=== PATIENT | female | born 1940 | race Caucasian/White ===

== ENCOUNTER → 2020-04-09 | Outpatient (CLI) | payer MEDICARE ==
[2020-04-09 12:47] LABS: Source, Urine Clean Catch
[2020-04-09 13:50] LABS: Hematocrit 38.9 % (33.0-51.0); Hemoglobin 11.6 g/dL (11.5-16.0); Mean Corpuscular HGB 25.4 pg (26.0-34.0); Mean Corpuscular HGB Conc 29.8 g/dL (31.5-36.5); Mean Corpuscular Volume 85 fL (80-100); Mean Platelet Volume 9.9 fL (9.1-12.4); Platelet Count 213 K/mm3 (150-400); RDW Coefficient Variation 15.4 % (11.7-14.2); RDW Standard Deviation 47.9 fL (35.1-46.3); Red Blood Cell Count 4.57 M/mm3 (3.80-5.20); White Blood Cell Count 5.66 K/mm3 (4.00-11.30)
[2020-04-09 14:15] LABS: Appearance, Urine Hazy (Clear); Bilirubin, Urine Neg (Neg); Blood, Urine 3+ (Neg); Color, Urine Yellow (P-Yellow); Glucose Qualitative, Urine Neg (Neg); Ketones, Urine Neg (Neg); Leukocyte Esterase, Urine 2+ (Neg); Nitrite, Urine Neg (Neg); Protein, Urine 2+ (Neg); Specific Gravity, Urine 1.015 (1.003-1.022); Urobilinogen, Urine NORM (Normal)
[2020-04-09 14:34] LABS: Bacteria Few /hpf; Squamous Epithelial Cells Few /hpf (Few); White Blood Cells, Urine TNTC /hpf (0-5)
[2020-04-09 14:57] LABS: Alanine Aminotransfer (ALT/SGP 23 U/L (12-78); Albumin, Blood 3.5 g/dL (3.4-5.0); Albumin/Globulin Ratio 0.9 (0.8-1.8); Alk Phos 130 U/L (50-136); Anion Gap 9 mmol/L (6-16); Aspartate Aminotrans (AST/SGOT 28 U/L (12-37); Bilirubin, Total 0.4 mg/dL (0.1-1.0); Blood Urea Nitrogen 19 mg/dL (8-24); Bun/Creatinine Ratio 26.7 (12.0-20.0); CHOL/HDL RATIO 3.4; CO2, Blood 24 mmol/L (21-32); Chloride, Blood 107 mmol/L (98-108); Cholesterol 165 mg/dL (50-200); Creatinine, Blood 0.71 mg/dL (0.40-1.00); Globulin, Blood 3.7 g/dL (2.2-4.0); Glomerular Filtration Rate >60 (60-); Glucose, Blood 92 mg/dL (70-99); HDL Cholesterol 49 mg/dL (>39); LDL Direct Measurement 102 mg/dL (0-130); LDL/HDL RATIO 1.8; Low Density Lipoprotein Chol 86 mg/dL (0-110); Potassium, Blood 3.9 mmol/L (3.5-5.5); Sodium, Blood 140 mmol/L (136-145); Total Protein, Blood 7.2 g/dL (6.4-8.2); Triglycerides 151 mg/dL (30-160); Very Low Density Lipoprot Chol 30 mg/dL (6-32)
[2020-04-09 15:14] LABS: Creatinine, Urine Random 88.2 mg/dL (27.00-270.00); Microalb/Creat Ratio UR, Rand 134.921 mg/g (0.000-30.000)
== END | disposition home or self-care (01) ==
LOC: LAB SHORT 12:43 → OLS 12:43 → LAB FUT 04-03 14:40
PROVIDERS: Internal Medicine
DX: E78.2 Mixed hyperlipidemia (principal); E03.8 Other specified hypothyroidism; R73.02 Impaired glucose tolerance (oral); R53.81 Other malaise
CPT/HCPCS: 36415; 80053; 80061; 81001; 82043; 82570; 83036; 83721; 83880; 84443; 85027; 86141; 87086

== ENCOUNTER → 2020-05-10 | Outpatient (CLI) | payer MEDICARE | LOC: PLD 08:20 → LAB SHORT 08:20 | DX: L85.9 Epidermal thickening, unspecified (principal); L83 Acanthosis nigricans | CPT/HCPCS: 88305; 88312 ==

== ENCOUNTER → 2020-06-06 | Outpatient (CLI) | payer MEDICARE ==
[2020-06-06 14:42] LABS: Source, Urine Clean Catch
[2020-06-06 16:04] LABS: Appearance, Urine Clear (Clear); Bilirubin, Urine Neg (Neg); Blood, Urine 3+ (Neg); Color, Urine Yellow (P-Yellow); Glucose Qualitative, Urine Neg (Neg); Ketones, Urine Neg (Neg); Leukocyte Esterase, Urine 2+ (Neg); Nitrite, Urine Neg (Neg); Protein, Urine Neg (Neg); Specific Gravity, Urine 1.015 (1.003-1.022); Urobilinogen, Urine NORM (Normal)
[2020-06-06 16:10] LABS: White Blood Cells, Urine 25-50 /hpf (0-5)
[2020-06-06 16:11] LABS: Bacteria Mod /hpf; Squamous Epithelial Cells Few /hpf (Few)
== END | disposition home or self-care (01) ==
LOC: LAB SHORT 14:40 → PLD 14:40 → LAB FUT 05-30 12:40
PROVIDERS: Internal Medicine
DX: N30.20 Other chronic cystitis without hematuria (principal)
CPT/HCPCS: 81001; 87077; 87086; 87186

== ENCOUNTER → 2021-03-11 | Outpatient (CLI) | payer MEDICARE | END | disposition home or self-care (01) | LOC: LAB SHORT 12:55 → LAB 12:55 | DX: N39.0 Urinary tract infection, site not specified (principal) | CPT/HCPCS: 87077; 87086; 87186 ==

== ENCOUNTER 2025-02-10 14:34 | Inpatient (IN) | payer MEDICARE ==
[~2025-02-10] VITALS: Ht 160 cm; Wt 96.1 kg
[~2025-02-10 14:34] MED LIST changes: -ACET500 PO; -ALBU90OI INH; -ASPI81CH PO; -CHLO25B PO; -CLOBETASOL EMOL15 G1 TOP; -FARXIGA10 MG PO; -IBUP200 PO; -Isosorbide Mono30 MG PO
[2025-02-10] MEDS ORDERED: CefTRIAXone Sodium 1,000 MG in NS 100 ML IV ONE (17:25)
[2025-02-10 17:36] LABS: Source, Urine Clean Catch
[2025-02-10 17:43] LABS: Bilirubin, Urine Neg (Neg); Glucose Qualitative, Urine Neg (Neg); Ketones, Urine Neg (Neg); Leukocyte Esterase, Urine 3+ (Neg); Protein, Urine 1+ (Neg); Specific Gravity, Urine 1.015 (1.003-1.022); Urobilinogen, Urine NORM (Normal)
[2025-02-10 17:53] LABS: Color, Urine Pale Yellow (P-Yellow)
[2025-02-10 17:54] LABS: White Blood Cells, Urine 50-100 /hpf (0-5)
[2025-02-10] MEDS ORDERED: Ondansetron HCl 2 MG / ML 2ML Vial IV PRN (18:00)
[2025-02-10] MEDS ORDERED: FentaNYL Citrate 50 MCG/ML 2 ML Injection IV PRN (18:00)
[2025-02-10] MEDS ORDERED: NS 1,000 ML IV SCH (18:00)
[2025-02-10] MEDS ORDERED: FLU VACC TS2025(65UP)/MF59C/PF 45 MCG/0.5 ML SYRINGE IM SCH (18:05)
[2025-02-10] MEDS ORDERED: CefTRIAXone Sodium 1,000 MG in NS 100 ML IV SCH (18:30)
[2025-02-10 18:53] LABS: Influenza A, PCR NEGATIVE (NEGATIVE); Influenza B, PCR NEGATIVE (NEGATIVE); Resp Syncytial Virus, PCR NEGATIVE (NEGATIVE); SARS-Cov-2 (COVID-19) PCR, MMC NEGATIVE (NEGATIVE)
[2025-02-10 20:07] VITALS: BP 130/79
[2025-02-10] MEDS ORDERED: ACET500 PO (20:38)
[2025-02-10] MEDS ORDERED: ALBU90OI INH (20:39)
[2025-02-10] MEDS ORDERED: CHLO25B PO (20:40)
[2025-02-10] MEDS ORDERED: CLOBETASOL EMOL15 G1 TOP (20:41)
[2025-02-10] MEDS ORDERED: FARXIGA10 MG PO (20:41)
[2025-02-10] MEDS ORDERED: IBUP200 PO (20:42)
[2025-02-10] MEDS ORDERED: Isosorbide Mono30 MG PO (20:42)
[2025-02-10] MEDS ORDERED: ASPI81CH PO (20:51)
[2025-02-10] MEDS ORDERED: Acetaminophen 500MG/DP-Hydram 25MG HCL 1 Tab PO ONE (21:25)
[2025-02-10] MEDS ORDERED: Clobetasol Prop 0.05% Cream 15 gm TOP PRN (23:05)
[2025-02-10] MEDS ORDERED: Albuterol HFA200 ACT/6.7 GM INH INH PRN (23:20)
[2025-02-10] MEDS ORDERED: Miconazole Nitrate 2% 85 GM PWD TOP PRN (23:25)
[2025-02-11] VITALS (7 sets, daily range): BP systolic 109–134; BP diastolic 68–85
[2025-02-11 02:18] LABS: Alanine Aminotransfer (ALT/SGP 17.0 U/L (12-78); Albumin, Blood 2.9 g/dL (3.4-5.0); Albumin/Globulin Ratio 1.0 (0.8-1.8); Anion Gap 7.0 mmol/L (3-11); Aspartate Aminotrans (AST/SGOT 19.0 U/L (12-37); Bilirubin, Total 0.6 mg/dL (0.1-1.0); Blood Urea Nitrogen 12.0 mg/dL (8-24); CO2, Blood 26.0 mmol/L (21-32); Calcium, Blood 8.5 mg/dL (8.5-10.1); Chloride, Blood 111.0 mmol/L (98-108); Creatinine, Blood 0.69 mg/dL (0.40-1.00); Globulin, Blood 3.0 g/dL (2.2-4.0); Glucose, Blood 107.0 mg/dL (70-99); Potassium, Blood 3.7 mmol/L (3.5-5.5); Sodium, Blood 140.0 mmol/L (136-145); Total Protein, Blood 5.9 g/dL (6.4-8.2)
[2025-02-11 02:25] LABS: BASOPHILS ABSOLUTE AUTO 0.03 K/mm3 (0.00-0.23); BASOPHILS PERCENT AUTO 1 % (0-2); EOSINOPHILS ABSOLUTE AUTO 0.06 K/mm3 (0.00-0.68); EOSINOPHILS PERCENT AUTO 1 % (0-6); Hematocrit 34.6 % (33.0-51.0); Hemoglobin 11.0 g/dL (11.5-16.0); IMMATURE GRAN ABSOLUTE AUTO 0.01 K/mm3 (0.00-0.10); IMMATURE GRAN PERCENT AUTO 0 % (0-1); LYMPHOCYTES ABSOLUTE AUTO 2.04 K/mm3 (0.84-5.20); LYMPHOCYTES PERCENT AUTO 34 % (21-46); MONOCYTES ABSOLUTE AUTO 0.66 K/mm3 (0.16-1.47); MONOCYTES PERCENT AUTO 11 % (4-13); Mean Corpuscular HGB Conc 31.8 g/dL (31.5-36.5); Mean Corpuscular Volume 92 fL (80-100); NEUTROPHILS ABSOLUTE AUTO 3.26 K/mm3 (1.96-9.15); NEUTROPHILS PERCENT AUTO 54 % (41-73); NRBC ABSOLUTE 0.00 K/mm3 (0.00-0.02); NRBC Auto 0.0 /100 WBC (0.0-0.2); Platelet Count 168 K/mm3 (150-400); RDW Coefficient Variation 14.7 % (11.7-14.2); RDW Standard Deviation 50.0 fL (35.1-46.3)
--- NOTE | 2025-02-11 03:41 | NUR ---
SHIFT SUMMARY: PATIENT ARRIVED FROM ER YESTERDAY 02/10/25 AROUND 1999. PATIENT IS A&OX4. SOFTWARE QA MANAGER REPORTS PATIENTS RHYTHM TO BE SINUS TACH WITH BBB AND HR BETWEEN 120'S-130'S BPM. PATIENT REPORTS FEELING PALPATATIONS AND HAS HAD CONSISTENT 4-5/10 SUBSTERNAL CHEST PAIN SCORE THROUGHOUT SHIFT. PATIENT WAS GIVEN ONE TIME ORDER OF 1 TABLET PO TYLENOL PM PER JUN TO HELP WITH CHEST PAIN MANAGEMENT AND FOR SLEEP SINCE SHE TAKES IT AT HOME. PATIENT STATES "IT'S WORSE IF I TAKE A DEEP BREATH OR IF I MOVE TOO MUCH." DR. REED AWARE, X1 DOSE OF IV NS @ 100ML/HR AND HOME MEDICATIONS ORDERED, BUT OTHERWISE NO ADDITIONAL NEW ORDERS AT THIS TIME. THIS NURSE REQUESTED FOR CARDIOLOGY CONSULT, BUT NO ORDER WAS PLACED AT THIS TIME. PATIENT IS ON 2L NC WITH >90% SPO2 AND DID NOT WEAR HER HOME BIPAP AND REFUSED THE HOSPITALS TONIGHT, BUT FAMILY SAID THEY WOULD BRING HOME BIPAP IN TODAY. OTHER VITALS ARE STABLE AT THIS TIME. NPO DIET- BUT ICE CHIPS ARE OKAY, AND HAS Q6H CBG CHECKS ORDERED WHILE NPO. PATIENT IS LAYING IN BED WITH CALL LIGHT IN REACH AND BED ALARM ON A PRECAUTION SINCE DURING THE NIGHT PATIENT WOULD FORGET TO CALL FOR HELP TO USE BSC. PATIENT WAS EDUCATED ON PUREWICK FUNCTION AND COULD HELP HER SLEEP FOR LONGER PERIODS OF TIME, HOWEVER, PATIENT REFUSED FOR THE PUREWICK AND ONLY WANTS TO USE BSC. CHEST PAIN WITH EACH USE OF BSC STAYED THE SAME WITH NO INCREASE IN HR OR PAIN SCORING.
--- NOTE | 2025-02-11 08:49 | NUR ---
PALLIATIVE CARE NOTE: CONSULT RECEIVED FOR ADVANCED CARE PLANNING AND SYMPTOM MANAGEMENT. REVIEWED MEDICAL RECORD. NO POLST OR AD FOUND ON FILE OR THROUGH [facility]. PT IS FULL CODE. PLAN TO RULE OUT PE DUE TO CP, ELEVATED TROPONINS.
[2025-02-11] MEDS ORDERED: Isosorbide Mononitrate 30 MG TABCR PO SCH (09:00)
[2025-02-11] MEDS ORDERED: Enoxaparin 40 MG/0.4 ML SYR SC SCH (09:00)
[2025-02-11] MEDS ORDERED: Diltiazem HCl 5 MG / ML 5ML Vial IV ONE (11:20)
[2025-02-11] MEDS ORDERED: Amiodarone HCl 450 MG in NS 250 ML IV SCH (12:45)
--- NOTE | 2025-02-11 12:45 | NUR ---
1244 - SPOKE WITH DR. LEON VIA PHONE AND MD REQUESTING AMIO GTT STARTED FOR PATIENT. CONFIRM MEDS GIVEN VIA EMAR OF THIS MORNING FOR RATE CONTROL WITH PROVIDER. ORDER PLACED, AWAITING PHARMACY VERIFICATION AND DELIVERY. UPDATED MAGALY MORENO RN
--- NOTE | 2025-02-11 13:28 | NUR ---
PALLIATIVE CARE VISIT: MET WITH PT AT 1030 THIS MORNING. PT IS AWAKE, A/O X 4 AND AGREEABLE TO VISIT. CODE STATUS DISCUSSED. PT EDUCATED ON CPR VS DNR MEASURES. PT WISHES TO REMAIN A FULL CODE. SHE STATES SHE WOULD BE OKAY WITH CPR AND INTUBATION IF NECESSARY BUT WOULD NOT WANT PROLONGED STAY ON BREATHING MACHINE. AD: PT STATES SHE HAS COMPLETED AN ADVANCE DIRECTIVE. IT IS AT HOME IN HER SAFE. PT STATES SHE HAS NOT GIVEN A COPY TO HER HEALTHCARE REP WHICH IS HER SON. ENCOURAGED PT TO GIVE A COPY TO HER SON AND ALSO BRING COPY TO HOSPITAL TO BE UPLOADED TO HER MEDICAL RECORD. PT STATES SHE WOULD DO THIS. SYMPTOMS: PT STATES SHE HAS NO NAUSEA, CONSTIPATION, ANXIETY, DECREASED APPETITE. SHE DOES HAVE HER NORMAL ARTHRITIS PAIN AND IT IS MANAGED WITH TYLENOL IN AM AND BEFORE BED. PT STATES SHE STILL GETS SOB WITH ACTIVITY BUT RECOVERS QUICKLY. PT IS ON 2 LPM VIA NC AT THIS TIME. PT DENIES ANY FURTHER QUESTIONS OR CONCERNS. SHE IS AWAITING TEST RESULTS FROM HOSPITALIST.
--- NOTE | 2025-02-11 13:40 | NUR ---
UPDATE MD LEON CONSULTED. MD LEON W/ ORDERS FOR AMIO GTT. STARTED NOW. WILL GO TO HALF RATE AT 1940.
--- NOTE | 2025-02-11 18:02 | NUR ---
SHIFT SUMMARY PT A&O, ABLE TO MAKE NEEDS KNOWN. SP02>90% ON 1L NC FOR COMFORT. SATS OK W/O BUT PT STATES FEELS SOB W/O. FAMILY BROUGHT IN HOME CPAP AT BEDSIDE. TELMEETRY SHOWS AFLUTTER 2:1, HR 100'S-130'S. CARDIOLOGY CONSULTED. CARDIOLOGY W/ ORDERS FOR AMIO GTT, SEE PREVIOUS NOTE. UP TO BSC TO VOID/HAVE BM. C/O OF CP, MEDICATED W/ TYLENOL PER EMAR. AWARE. UPGRADED TO CARDIAC DIET. REFUSED BED BATH. MULTIPLE FAMILY IN ROOM THIS SHIFT. CURRENTLY ON COMMODE, CALL LIGHT IN REACH.
[2025-02-12] VITALS (7 sets, daily range): BP systolic 126–153; BP diastolic 78–104
[2025-02-12 04:12] LABS: Alanine Aminotransfer (ALT/SGP 14.0 U/L (12-78); Albumin, Blood 2.7 g/dL (3.4-5.0); Albumin/Globulin Ratio 0.8 (0.8-1.8); Anion Gap 7.0 mmol/L (3-11); Aspartate Aminotrans (AST/SGOT 13.0 U/L (12-37); Bilirubin, Total 0.3 mg/dL (0.1-1.0); Blood Urea Nitrogen 14.0 mg/dL (8-24); CO2, Blood 25.0 mmol/L (21-32); Calcium, Blood 8.8 mg/dL (8.5-10.1); Chloride, Blood 109.0 mmol/L (98-108); Creatinine, Blood 0.84 mg/dL (0.40-1.00); Globulin, Blood 3.2 g/dL (2.2-4.0); Glucose, Blood 107.0 mg/dL (70-99); Magnesium, Blood 2.2 mg/dL (1.6-2.4); Potassium, Blood 4.0 mmol/L (3.5-5.5); Sodium, Blood 137.0 mmol/L (136-145); Total Protein, Blood 5.9 g/dL (6.4-8.2)
--- NOTE | 2025-02-12 05:18 | NUR ---
SHIFT SUMMARY: NO SIGNIFICANT CHANGES DURING TONIGHTS NIGHTSHIFT. PATIENT IS A&OX4, BUT BED ALARM WAS SET DUE TO PATIENT FORGETTING TO CALL INTERMITTENTLY DURING THE NIGHT TO USE BSC. PATIENT EACH TIME WAS RE-EDUCATED ON USING THE CALL LIGHT BEFORE GETTING UP. PATIENT WOULD THEN VERBALIZE UNDERSTANDING OF EDUCATION EACH TIME. PER LEAD PHARMACY TECHNICIAN AISHWARYA PATIENTS RHYTHM CONTINUES TO BE AFLUTTER WITH BBB WITH HR SUSTAINING IN THE 120'S BPM. PATIENT REPORTED 2/10 SUBSTERNAL DULL ACHING CHEST PAIN, BUT DENIED PRN PAIN MEDICATIONS THROUGHOUT SHIFT. AMIO GTT WAS RUNNING AT 33.3 ML/HR FOR THE BEGINNING OF THE SHIFT SINCE IT WAS WITHIN THE 6 HOURS PER PHARMACY ORDERS. AMIO GTT RATE WAS CHANGED AT 1944 TO 16.7 ML/HR FOR THE MAINTENANCE RATE PER PHARMACY ORDERS. PATIENT HAS BEEN UP FREQUENTLY TO USE THE BSC TO VOID AND PASS GAS. PATIENT WAS CONCERNED ABOUT NOT HAVING A BM RECENTLY, NOTIFIED AND PLACED ORDERS FOR STOOL SOFTENERS TO BE GIVEN LATER THIS MORNING. PATIENT IS CURRENTLY LAYING IN BED WITH CALL LIGHT IN REACH. BED ALARM ON A PRECAUTION.
--- NOTE | 2025-02-12 10:02 | NUR ---
UPDATE MD LEON W/ ORDERS TO DC CARDIZEM PO. START METOPROLOL SUCCINATE 50 MG BID STARTING TODAY AT 2100. CONTINUE AMIO GTT AND START PO AMIO TOMORROW.
--- NOTE | 2025-02-12 13:48 | NUR ---
UPDATE PT A&OX4. SP02>90% ON 1-2L NC, CPAP AT NOC. SOB W/ EXERTION. TELEMETRY SHOWS AFLUTTLER AVG 120'S. BP STABLE. AMIO GTT INFUSING PER EMAR. C/O 2/10 STERNAL PRESSURE, DESCRIBES ACHE. MD LEON IN ROOM. MD LEON W/ ORDERS FOR METOPROLOL 2100 TO BE GIVEN NOW. REASSES THIS EVENING AND POSSIBLY DIG LOAD TONIGHT. NPO FOR POSSIBLE JESSIKA/CARDIOVERSON IN AM. PT AGREED AND VERBALIZED UNDERSTANDING. PT ENERGETIC THIS AM, ASKED TO SHOWER. PT ABLE TO SIT IN SHOWER CHAIR AND BATH WITH ASSISTANCE, MINIMAL SOB. PT EXPRESSED FEELING GREAT. DAUGHTER IN ROOM AFTER SHOWER. POWERGLIDE PLACED. SHORTLY AFTER, SEVERAL FAMILY MEMEBERS IN ROOM. PT BEGAN TO APPEAR TIRED, SOB, STATES SHE FEELS WEAK. FAMILY ASKED TO LEAVE TO LET PATIENT REST. PT UP MULTIPLE TIMES THIS SHIFT TO COMMODE TO VOID AND HAVE ONE LARGE BM. CALL LIGHT IN REACH.
--- NOTE | 2025-02-12 17:13 | NUR ---
UPDATE PT HR REMAINS IN 120'S. MD LEON NOTIFIED. MD LEON W/ ORDERS FOR DIGOXIN IV 250 MCG NOW AND THEN 250 MCG IN 6 HOURS.
--- NOTE | 2025-02-12 17:50 | NUR ---
SHIFT SUMMARY PT A&OX4, MAKES NEEDS KNOWN. SP02>90% ON 1-2L NC. EXPIRATORY WHEEZING AUDIBLE AT DINNER THIS EVENING. SOB W/ EXERTION. WORE CPAP FOR NAP. TELEMETRY CONTINUES TO SHOW A FLUTTER, HR 120'S. JUST DIG LOADED PER EMAR. ECHO THIS SHIFT, AWAITING RESULTS. DENIES PAIN. UP TO BSC TO VOID AND HAVE BM. UP TO SHOWER THIS SHIFT. AMIO GTT FINISHED THIS SHIFT. NPO AT MIDNIGHT FOR POSSIBLE JESSIKA/CARDIOVERSION. CURRENTLY IN ROOM EATING DINNER AND TALKING TO FAMILY. CALL LIGHT IN REACH.
[2025-02-13] VITALS (10 sets, daily range): BP systolic 133–162; BP diastolic 85–108
[2025-02-13 05:09] LABS: Anion Gap 10.0 mmol/L (3-11); Blood Urea Nitrogen 13.0 mg/dL (8-24); CO2, Blood 23.0 mmol/L (21-32); Calcium, Blood 8.8 mg/dL (8.5-10.1); Chloride, Blood 110.0 mmol/L (98-108); Creatinine, Blood 0.75 mg/dL (0.40-1.00); Glucose, Blood 107.0 mg/dL (70-99); Potassium, Blood 4.2 mmol/L (3.5-5.5); Sodium, Blood 139.0 mmol/L (136-145)
--- NOTE | 2025-02-13 05:44 | NUR ---
SHIFT SUMMARY Pt had 2 IVs in ANDREW that infiltrated, pt reported high pain even after removal, ice applied and limb elevated. CPAP at NOC w/ 2L bleed. Does desat to mid 80s when off O2. HRs labile - 80 to 120s. Remained in fib/flutter. Up to commode with 1assist. Bed alarm on d/t impulsivity, forgetfulness NPO for a JESSIKA with possible cardioversion today.
--- NOTE | 2025-02-13 12:11 | NUR ---
MORNING SUMMARY ASSUMPTION OF CARE AROUND 0710 THIS MORNING, REPORT RECIEVED FROM YUMI THAKUR. THE PT IS A&OX4, 1P ASSIST TO BSC W/ FWW, AND THE PT MAKES HER NEEDS KNOWN. ON TELE SHE HAS BEEN AFLUTTER 120'S, DESPITE THE INCREASE IN METOPROLOL SUCCINATE AND IV DIGOXIN. BP A LITTLE HYPERTENSIVE THIS AFTERNOON. DISCUSSED WITH DR. MALDONADO. THE PT IS W/O ANGINA/PALPITATIONS/PRESSURE, BUT SHE IS SOB AND IT WORSENS WITH EXCERTION. DR. LEON SAW THE PT AND IS PLANNING ON DOING A JESSIKA 02/14 IN ICU. THE PT WILL TRANSFER TO ICU AT SOME POINT TODAY. ICU AND PCU WINDOWS PHONE DEVELOPER'S AWARE. DR. LEON DISCUSSED RISKS WITH THE FAMILY AND PT. ALL QUESTIONS WERE ANSWERED AND THE PT IS AGREEABLE TO CONTINUE WITH THE JESSIKA DESPITE THE RISK OF INTUBATION. THE PT STARTED THE SHIFT ON 3L NC. SHE HAS SINCE BEEN TITRAITED TO 1L NC. SP02 >95%. THE PT REPORTS CHRONIC HISTORY OF URINARY URGENCY. MEDICATIONS PER EMAR. NO BOWEL MOVEMENT THIS MORNING, BUT THE PT DID REPORT HAVING MULTIPLE YESTERDAY. NO ACUTE EVENTS THIS SHIFT. SEE NOTES FOR UPDATES.
--- NOTE | 2025-02-13 16:40 | NUR ---
INCREASED SOB THIS EARLY AFTERNOON THE PT WAS DRINKING A MILKSHAKE THAT TRIGGERED A COUGHING FIT. THE PT BECAME VERY SOB, TACHYPEANIC, AND WAS HAVING LABORED BREATHING. SHE WAS UNABLE TO SPEAK WITH OUT HAVING TO TAKE A BREATH. WHEEZES AND TIGHTNESS NOTED T/O LUNGS. SP02 >95% ON 1LNC. THE PT WAS INCREASED TO 2L NC DURING THIS EPISODE. RT CALLED AND A BREATHING TREATMENT WAS PROVIDED TO THE PT. POST BREATHING TREATMENT, THE PT'S TACHYPEANIA RESOLVED AND SHE WAS NOT STRUGGLING TO BREATH OR TALK. FAMILY WAS AT BEDSIDE AND UPDATED ON EVENTS THAT WERE TAKING PLACE. ALSO, THIS RN REMINDED FAMILY THAT THE PT WILL BE TRANSFERING TO ICU TODAY AT SOME POINT FOR TOMORROW'S PROCEDURE. THE PT'S DAUGHTER ELIAS WANTS TO BE THE PERSON NOTIFIED WHEN SHE TRANSFERS TO ICU. SEE NOTES FOR ANY UPDATES.
--- NOTE | 2025-02-13 16:52 | NUR ---
"Spiritual Care | Pt. Request Pt. is awake in bed and welcomes my visit with a handshake. Pt. is pleasant. Pt. identifies herself as woman of cristhian and a lengthy life review based on cristhian and belief is facilitated. Pt. verbalized how important her family relationships were and that she just lost her second in April. Pastoral bereavement care is provided, yet the Pt. maintained a spirit of gratitude. Prayed with the Pt. Pt. verbalized gratitude for the spiritual care visit."
[2025-02-13] MEDS ORDERED: Lactobacil 2-S.Thermo-Bifido 1 1 Cap PO SCH (21:00)
[2025-02-14] VITALS (19 sets, daily range): BP systolic 72–160; BP diastolic 48–94
--- NOTE | 2025-02-14 02:11 | NUR ---
SHIFT SUMMARY Remains in Aflutter, rates 80s while resting, 120s during activity. mild HTN. 2L NC vs CPAP at NOC. New dry/hacky cough, intermittent upper airway wheezing and some crackles in RUL. Impulsive so bed alarm active. SBA to commode. Bruising to upper arms from multiple IV infiltrations. urinary urgency/frequency. plan for JESSIKA and cardioversion in ICU later this AM
--- NOTE | 2025-02-14 04:17 | NUR ---
Report called to [facility] and Pt transported to ICU bed 9.
--- NOTE | 2025-02-14 05:30 | NUR ---
TRANSFER TO ICU 9 FOR JESSIKA PROCEDURE TODAY, PT ARRIVED AT 0400. SHIFT SUMM: PT NOW HAS 2 PATENT PIV IN RFA AND RAC.PT IS ABLE TO AMBULATE TO [facility] SBA. SBP'S HAVE BEEN IN 140'S AD HR IN 90-120'S. SPO2 >96% ON 2L NC. PT IS A&OX4 AND ABLE TO MAKE NEEDS KNOWN. PT BECAME NPO AT MIDNIGHT FOR JESSIKA PROCEDURE TODAY. PT IS CURRENTLY RELAXING AND HAS BED ALARM SET FOR SAFETY.
--- NOTE | 2025-02-14 07:00 | NUR ---
ASSUMED CARE OF PATIENT SHE IS ALERT AND ORIENTED X 4. SHE CAN ARIAS BUT WEAK AND SHORT OF BREATH WITH ACTIVITY. PATIENT BEING VISITED BY FAMILY ALL 6 AT BEDSIDE AT TIME OF SHIFT CHANGE. PLAN TO DO JESSIKA AND CARDIOVERSION TODAY FOR AFLUTTER RHYTHM RATE IN 120'S. PATIENT IS TACHYPNIC WHILE TALKING. AFEBRILE AT THIS TIME. PT HAS TWO PIV'S TO RIGHT FA AND RIGHT LOWER FA.
[2025-02-14] MEDS ORDERED: Benzocaine Oral Spray 0.5ML UD ONE (07:38)
[2025-02-14] MEDS ORDERED: NS 500 ML IV ONE (08:05)
--- NOTE | 2025-02-14 08:12 | NUR ---
Procedur start 0808. anethesia at bedside giving meds. DR LEON AT BEDSIDE DID ONE SHOCK AT 50J SYNCE ON. SEE ANETHESIA NOTES END 822.. PATIENT IN SINUS RHYTHM RATE 65. BP 122/57 MAP 76 SAO2 99% ON BUBBLE MASK OF 10L OXYEGEN. RR 28 ENTITLE 38. ORAL AIRWAY IN PLACE WHEN ANETHESIA LEFT ROOM.
[2025-02-14] MEDS ORDERED: NS 1,000 ML BAG IR SCH (08:40)
[2025-02-14] MEDS ORDERED: NS 1,000 ML IV ONE (08:45)
[2025-02-14] MEDS ORDERED: FentaNYL Citrate 50 MCG/ML 2 ML Injection ONE (09:13)
[2025-02-14] MEDS ORDERED: Lidocaine HCl 4% 5 ML SDA ONE (09:13)
[2025-02-14] MEDS ORDERED: Midazolam HCl 1MG / ML 2ML Vial ONE (09:13)
--- NOTE | 2025-02-14 12:08 | NUR ---
UPDATE PATIENT POST CARDIOVERSION THAT HAPPENED AT 0810. PT IS SINUS RHYTHM TO SINUS LOIDA RATE 57-65. PT ABLE TO BE OUT OF BED TO BATHROOM WITH ONE PERSON SBA WITHOUT TACHYPNEA OR SOB. PT BP 120/60'S AND OXYGEN AT 2L NC FOR SPO2 AT 99%. WHEN NC OFF AND TALK SHE DROPS TO 87%. PT ABLE TO EAT HER FOOD WHILE IN CHAIR FOR LUNCH. SHE RECEIVED BATH WITH WIPES AND NEW GOWN WHILE OUT OF BED. PT BRUSHED HER OWN HAIR. PT NOT COMPLAINING OF ANY PAIN AT THIS TIME.
[2025-02-14] MEDS ORDERED: Midazolam HCl 1MG / ML 2ML Vial IV ONE (13:30)
[2025-02-14] MEDS ORDERED: Propofol 10mg/ml 20 ml Vial (Procedural) IV ONE (13:30)
--- NOTE | 2025-02-14 17:53 | NUR ---
ASSUMED CARE FROM ICU IN AFTERNOON. A/A/OX3, DENIES CP OR SOB. SR 60'S. JESSIKA COMPLETED IN AM AND TOLERATED WELL. VSS. EATS DINNER WITHOUT DIFFICULTY. WILL CONTINUE TO MONITOR AND TREAT UNITL REPORT GIVEN TO DENNIS SHIFT RN.
[2025-02-15] VITALS (7 sets, daily range): BP systolic 95–146; BP diastolic 50–74
[2025-02-15 04:25] LABS: BASOPHILS ABSOLUTE AUTO 0.04 K/mm3 (0.00-0.23); BASOPHILS PERCENT AUTO 1 % (0-2); EOSINOPHILS ABSOLUTE AUTO 0.23 K/mm3 (0.00-0.68); EOSINOPHILS PERCENT AUTO 5 % (0-6); Hematocrit 35.3 % (33.0-51.0); Hemoglobin 11.0 g/dL (11.5-16.0); IMMATURE GRAN ABSOLUTE AUTO 0.02 K/mm3 (0.00-0.10); IMMATURE GRAN PERCENT AUTO 0 % (0-1); LYMPHOCYTES ABSOLUTE AUTO 1.46 K/mm3 (0.84-5.20); LYMPHOCYTES PERCENT AUTO 31 % (21-46); MONOCYTES ABSOLUTE AUTO 0.30 K/mm3 (0.16-1.47); MONOCYTES PERCENT AUTO 6 % (4-13); Mean Corpuscular HGB Conc 31.2 g/dL (31.5-36.5); Mean Corpuscular Volume 95 fL (80-100); NEUTROPHILS ABSOLUTE AUTO 2.69 K/mm3 (1.96-9.15); NEUTROPHILS PERCENT AUTO 57 % (41-73); NRBC ABSOLUTE 0.00 K/mm3 (0.00-0.02); NRBC Auto 0.0 /100 WBC (0.0-0.2); Platelet Count 202 K/mm3 (150-400); RDW Coefficient Variation 14.6 % (11.7-14.2); RDW Standard Deviation 50.7 fL (35.1-46.3)
[2025-02-15 04:49] LABS: Anion Gap 10.0 mmol/L (3-11); Blood Urea Nitrogen 16.0 mg/dL (8-24); CO2, Blood 25.0 mmol/L (21-32); Calcium, Blood 8.8 mg/dL (8.5-10.1); Chloride, Blood 105.0 mmol/L (98-108); Creatinine, Blood 0.81 mg/dL (0.40-1.00); Glucose, Blood 112.0 mg/dL (70-99); Potassium, Blood 4.5 mmol/L (3.5-5.5); Sodium, Blood 135.0 mmol/L (136-145)
--- NOTE | 2025-02-15 05:18 | NUR ---
SHIFT SUMMARY: PT IS A&OX4, PLEASANT AND COOPERATIVE WITH CARE. VSS ON 2L NC DURING DAY AND CPAP AT NIGHT SATS 97-99%. SHE TOLERATED HER CPAP ALL NIGHT. SHE'S NORMALLY RA AT HOME. SB AT 59 WITH 1ST DEGREE AV BLOCK PVC AND BBB. HER HR REMAINED IN THE 40'S THROUGHOUT THE NIGHT WHILE SLEEPING AFTER TAKING HER AMIODORONE. TAKES HER PILLS WHOLE WITH WATER TOLERATING A REGULAR DIET, SBA TO COMMODE. VOIDING YELLOW URINE. REMAINS ON AUGMENTIN FOR UTI. SHE REFUSED HER COLACE AND SENNA. BED IN LOWEST POSITION, CALL LIGHT WITHIN REACH. CALLS APPROPRIATELY AND IS ABLE TO VERBALIZE NEEDS EFFECTIVELY.
--- NOTE | 2025-02-15 07:00 | NUR ---
ASSUMPTION OF CARE: REPORT FROM CAROLINE, FRED RN TO ASSUME CARE OF PT. PT RESING COMFORTABLY IN BED WITH NO COMPLAINTS OR NEEDS AT THIS TIME. CALL LIGHT IN REACH.
--- NOTE | 2025-02-15 11:54 | NUR ---
SHIFT SUMMARY: PT A&OX4. FOLLOWS COMMANDS AND MAKES NEEDS KNOWN TO STAFF. PT WAS ABLE TO WALK TO THE BATHROOM A COUPLE TIMES THIS SHIFT TO SHOWER AND USE THE BATHROOM. DENIES ANY COMPLAINTS WITH ACTIVITY. HR REMAINS LOIDA. BP STABLE. NO SIGNIFICANT EVENTS HAPPENED DURING THIS SHIFT. REPORT TO ILEANA Vaughn TO ASSUME CARE OF PT.
--- NOTE | 2025-02-15 18:58 | NUR ---
EOS: NO ACUTE CHANGES FROM ASSUMTION FROM PREVIOUS RN, NOW ON RA. ABLE TO MAKE NEEDS KNOWN, A/O X 4 ABLE TO MAKE NEEDS KNOWN, ONLY CHANGE CALL TO DR. LEON AT SHIFT CHANGE DUE TO SLEEPING AND NEW HR OF 39 AND JUNCTIONAL, NO CHANGE CONTNINCESAR FELICIANO DONT HOLD. DENIES CHEST PAIN, MILD LAIRD PRN TYLENOL GIVEN. ABLE TO VOID, FREQUENCY AND MILD INCONTINENCE AT TIMES. DENIES BM DENIES BM MEDS, PLAN OF CARE CONTINUES.
[2025-02-16 03:14] VITALS: BP 133/82
[2025-02-16 05:18] LABS: Anion Gap 9.0 mmol/L (3-11); Blood Urea Nitrogen 15.0 mg/dL (8-24); CO2, Blood 27.0 mmol/L (21-32); Calcium, Blood 8.8 mg/dL (8.5-10.1); Chloride, Blood 106.0 mmol/L (98-108); Creatinine, Blood 0.76 mg/dL (0.40-1.00); Glucose, Blood 105.0 mg/dL (70-99); Potassium, Blood 4.3 mmol/L (3.5-5.5); Sodium, Blood 138.0 mmol/L (136-145)
--- NOTE | 2025-02-16 05:43 | NUR ---
SHIFT SUMMARY PATIENT A/O X 4, COOPERATIVE WITH CARE AND USES CALL LIGHT APPROPRIATELY. SINUS LOIDA 40-50s, BRIEFLY DROPS TO 30s WHILE SLEEPING BUT QUICKLY IMPROVES. SATS >90 %, SLEEPING WITH CPAP ON. PATIENT SBA WITH FWW TO BATHROOM, TOLERATES WELL. REPOSITIONS IN BED INDEPENDENTLY. PATIENT SLEPT MOST OF THE SHIFT, NO ACUTE EVENTS. BED LOCKED IN LOWEST POSITION, CALL LIGHT IN REACH.
[2025-02-16 05:55] LABS: BASOPHILS ABSOLUTE AUTO 0.03 K/mm3 (0.00-0.23); BASOPHILS PERCENT AUTO 1 % (0-2); EOSINOPHILS ABSOLUTE AUTO 0.16 K/mm3 (0.00-0.68); EOSINOPHILS PERCENT AUTO 4 % (0-6); Hematocrit 33.1 % (33.0-51.0); Hemoglobin 10.3 g/dL (11.5-16.0); IMMATURE GRAN ABSOLUTE AUTO 0.01 K/mm3 (0.00-0.10); IMMATURE GRAN PERCENT AUTO 0 % (0-1); LYMPHOCYTES ABSOLUTE AUTO 1.32 K/mm3 (0.84-5.20); LYMPHOCYTES PERCENT AUTO 31 % (21-46); MONOCYTES ABSOLUTE AUTO 0.35 K/mm3 (0.16-1.47); MONOCYTES PERCENT AUTO 8 % (4-13); Mean Corpuscular HGB Conc 31.1 g/dL (31.5-36.5); Mean Corpuscular Volume 95 fL (80-100); NEUTROPHILS ABSOLUTE AUTO 2.45 K/mm3 (1.96-9.15); NEUTROPHILS PERCENT AUTO 57 % (41-73); NRBC ABSOLUTE 0.00 K/mm3 (0.00-0.02); NRBC Auto 0.0 /100 WBC (0.0-0.2); Platelet Count 212 K/mm3 (150-400); RDW Coefficient Variation 14.6 % (11.7-14.2); RDW Standard Deviation 50.2 fL (35.1-46.3)
[2025-02-16 09:19] VITALS: BP 128/64
[2025-02-16] MEDS ORDERED: AMIODARONE HCL400 M1 PO (10:10)
[2025-02-16] MEDS ORDERED: Amiodarone HCl200 MG PO ×2 (10:11→10:12)
[2025-02-16] MEDS ORDERED: AMOCLA875 PO (10:13)
[2025-02-16] MEDS ORDERED: ELIQUIS5 M4 PO (10:13)
[2025-02-16] MEDS ORDERED: ENTRESTO 24 MG1 EACH PO (10:14)
[2025-02-16] MEDS ORDERED: VISBIOME 112.51 EACH PO (10:18)
[2025-02-16 11:17] VITALS: BP 131/58
--- NOTE | 2025-02-16 13:15 | NUR ---
DISCHARGE SUMMARY EDUCATED PATIENT AND DAUGHTER; EDUCATED ON DISCHARGE INSTRUCTIONS, FOLLOW UP APPOINTMENT AND MEDICATIONS. EDUCATED ON HEART FAILURE, A-FLUTTER, CARDIOMYOPATHY AND NEW MEDICATIONS. PRESCRIPTION FAXED TO [facility]. PT LEFT VIA WHEELCHAIR AT 1310.
== END 2025-02-16 13:12 | disposition home or self-care (01) | DRG 871 ==
LOC: ER 14:34 → PCU 17:35 → ICUE 17:35 → PCU 19:55 → ICUE 02-14 04:00 → PCU 02-14 15:10
PROVIDERS: Family Medicine; Internal Medicine; Student in an Organized Health Care Education/Training Program; ADMIT Internal Medicine
PROC: 3E03329 Introduction of Other Anti-infective into Peripheral Vein, Percutaneous Approach (ICD-10-PCS; 2025-02-10)
PROC: 5A2204Z Restoration of Cardiac Rhythm, Single (ICD-10-PCS; principal; 2025-02-14)
DX: A41.51 Sepsis due to Escherichia coli [E. coli] (principal); I50.33 Acute on chronic diastolic (congestive) heart failure; N39.0 Urinary tract infection, site not specified; N17.9 Acute kidney failure, unspecified; I48.92 Unspecified atrial flutter; I42.8 Other cardiomyopathies; E66.01 Morbid (severe) obesity due to excess calories; G47.33 Obstructive sleep apnea (adult) (pediatric); R65.20 Severe sepsis without septic shock; K21.9 Gastro-esophageal reflux disease without esophagitis; I36.1 Nonrheumatic tricuspid (valve) insufficiency; I11.0 Hypertensive heart disease with heart failure; E03.9 Hypothyroidism, unspecified; J44.9 Chronic obstructive pulmonary disease, unspecified; I44.7 Left bundle-branch block, unspecified; Z79.82 Long term (current) use of aspirin; Z79.84 Long term (current) use of oral hypoglycemic drugs; Z79.890 Hormone replacement therapy; Z79.899 Other long term (current) drug therapy; Z88.0 Allergy status to penicillin; Z88.1 Allergy status to other antibiotic agents; Z88.5 Allergy status to narcotic agent
CPT/HCPCS: 36415; 71260; 80048; 80053; 80162; 81001; 82947; 83605; 83735; 83880; 84443; 84484; 85025; 87040; 87086; 87637; 93005; 93010; 93306; 93312; 93325; 94640; 94660; 94664; 94761; 94762; 96360; 96361; 99285-25; A9270; J0282; J0456; J0696; J1160; J1650; J2003; J2250; J2405; J2704; J3010; J7030; J7040; J7050; J7120; Q9967

== ENCOUNTER → 2025-02-10 | Outpatient (CLI) | payer MEDICARE ==
[~2025-02-10] MED LIST: ACET500 PO; ALBU90OI INH; ASPI81CH PO; CHLO25B PO; CLOBETASOL EMOL15 G1 TOP; DILTIAZEM 24HR120 M4 PO; EZETIMIBE10 M6 PO; FARXIGA10 MG PO; IBUP200 PO; Isosorbide Mono30 MG PO; LEVOTHYROXINE112 M18 PO; METOPROLOL SUCC25 MG PO; MONT10T PO; NYSTOP15 GM TOP; OMEP20ER PO; TROSPIUM CHLORI20 M1 PO
[2025-02-10 13:13] LABS: BASOPHILS ABSOLUTE AUTO 0.03 K/mm3 (0.00-0.23); BASOPHILS PERCENT AUTO 0 % (0-2); EOSINOPHILS ABSOLUTE AUTO 0.00 K/mm3 (0.00-0.68); EOSINOPHILS PERCENT AUTO 0 % (0-6); Hematocrit 35.0 % (33.0-51.0); Hemoglobin 11.8 g/dL (11.5-16.0); IMMATURE GRAN ABSOLUTE AUTO 0.02 K/mm3 (0.00-0.10); IMMATURE GRAN PERCENT AUTO 0 % (0-1); LYMPHOCYTES ABSOLUTE AUTO 1.44 K/mm3 (0.84-5.20); LYMPHOCYTES PERCENT AUTO 17 % (21-46); MONOCYTES ABSOLUTE AUTO 0.66 K/mm3 (0.16-1.47); MONOCYTES PERCENT AUTO 8 % (4-13); Mean Corpuscular HGB Conc 33.7 g/dL (31.5-36.5); Mean Corpuscular Volume 89 fL (80-100); NEUTROPHILS ABSOLUTE AUTO 6.58 K/mm3 (1.96-9.15); NEUTROPHILS PERCENT AUTO 75 % (41-73); NRBC ABSOLUTE 0.00 K/mm3 (0.00-0.02); NRBC Auto 0.0 /100 WBC (0.0-0.2); Platelet Count 176 K/mm3 (150-400); RDW Coefficient Variation 14.5 % (11.7-14.2); RDW Standard Deviation 47.2 fL (35.1-46.3)
[2025-02-10 13:22] LABS: Alanine Aminotransfer (ALT/SGP 19.0 U/L (12-78); Albumin, Blood 3.4 g/dL (3.4-5.0); Albumin/Globulin Ratio 1.0 (0.8-1.8); Anion Gap 16.0 mmol/L (6-16); Aspartate Aminotrans (AST/SGOT 21.0 U/L (12-37); Bilirubin, Total 0.7 mg/dL (0.1-1.0); Blood Urea Nitrogen 18.0 mg/dL (8-24); CO2, Blood 23.0 mmol/L (21-32); Calcium, Blood 9.1 mg/dL (8.5-10.1); Chloride, Blood 106.0 mmol/L (98-108); Creatinine, Blood 1.04 mg/dL (0.40-1.00); Globulin, Blood 3.3 g/dL (2.2-4.0); Glucose, Blood 114.0 mg/dL (70-99); Potassium, Blood 4.1 mmol/L (3.5-5.5); Sodium, Blood 141.0 mmol/L (136-145); Total Protein, Blood 6.7 g/dL (6.4-8.2)
== END | disposition home or self-care (01) ==
LOC: LAB SHORT 13:08 → LAB 13:08
PROVIDERS: Chiropractor
DX: N39.0 Urinary tract infection, site not specified (principal); R05.9 Cough, unspecified; R50.9 Fever, unspecified
CPT/HCPCS: 80053; 83735; 84484; 85025; 87077; 87086; 87186

== ENCOUNTER 2025-04-04 20:16 | Emergency (ER) | payer MEDICARE ==
[~2025-04-04] VITALS: Ht 160 cm; Wt 89.8 kg
[~2025-04-04 20:16] MED LIST changes: +ACET500 PO; +ALBU90OI INH; +AMIODARONE HCL400 M1 PO; +AMOCLA875 PO; +ASPI81CH PO; +Amiodarone HCl200 MG PO; +CHLO25B PO; +CLOBETASOL EMOL15 G1 TOP; +ELIQUIS5 M4 PO; +ENTRESTO 24 MG1 EACH PO; +FARXIGA10 MG PO; +IBUP200 PO; +Isosorbide Mono30 MG PO; +VISBIOME 112.51 EACH PO
[2025-04-04 21:04] LABS: Hematocrit 39.6 % (33.0-51.0); Hemoglobin 13.1 g/dL (11.5-16.0); Mean Corpuscular HGB Conc 33.1 g/dL (31.5-36.5); Mean Corpuscular Volume 90 fL (80-100); NRBC ABSOLUTE 0.00 K/mm3 (0.00-0.02); NRBC Auto 0.0 /100 WBC (0.0-0.2); RDW Coefficient Variation 14.6 % (11.7-14.2); RDW Standard Deviation 48.1 fL (35.1-46.3)
[2025-04-04 21:05] LABS: Source, Urine Clean Catch
[2025-04-04 21:09] LABS: Bilirubin, Urine Neg (Neg); Color, Urine Yellow (P-Yellow); Glucose Qualitative, Urine Neg (Neg); Ketones, Urine Neg (Neg); Leukocyte Esterase, Urine 3+ (Neg); Protein, Urine 2+ (Neg); Specific Gravity, Urine 1.015 (1.003-1.022); Urobilinogen, Urine NORM (Normal)
[2025-04-04 21:10] LABS: Alanine Aminotransfer (ALT/SGP 22.0 U/L (12-78); Albumin, Blood 3.9 g/dL (3.4-5.0); Albumin/Globulin Ratio 1.1 (0.8-1.8); Anion Gap 10.0 mmol/L (3-11); Aspartate Aminotrans (AST/SGOT 34.0 U/L (12-37); Bilirubin, Total 0.5 mg/dL (0.1-1.0); Blood Urea Nitrogen 22.0 mg/dL (8-24); CO2, Blood 27.0 mmol/L (21-32); Calcium, Blood 9.1 mg/dL (8.5-10.1); Chloride, Blood 105.0 mmol/L (98-108); Creatinine, Blood 0.8 mg/dL (0.40-1.00); Globulin, Blood 3.7 g/dL (2.2-4.0); Glucose, Blood 81.0 mg/dL (70-99); Magnesium, Blood 2.8 mg/dL (1.6-2.4); Potassium, Blood 4.6 mmol/L (3.5-5.5); Sodium, Blood 137.0 mmol/L (136-145); Total Protein, Blood 7.6 g/dL (6.4-8.2)
[2025-04-04 21:16] LABS: White Blood Cells, Urine 25-50 /hpf (0-5)
[2025-04-04 21:28] LABS: BASOPHILS ABSOLUTE MAN 0.06 K/mm3 (0.00-0.23); BASOPHILS PERCENT MAN 1 % (0-2); EOSINOPHILS ABSOLUTE MAN 0.06 K/mm3 (0.00-0.68); EOSINOPHILS PERCENT MAN 1 % (0-6); LYMPHOCYTES ABSOLUTE MAN 2.52 K/mm3 (0.84-5.20); LYMPHOCYTES PERCENT MAN 42 % (21-46); MONOCYTES ABSOLUTE MAN 0.24 K/mm3 (0.16-1.47); MONOCYTES PERCENT MAN 4 % (4-13); NEUTROPHILS ABSOLUTE MAN 3.12 K/mm3 (1.96-9.15); SEG NEUTROPHILS PERCENT MAN 52 % (41-73)
[2025-04-04 21:31] LABS: Platelet Count 209 K/mm3 (150-400)
[2025-04-04] MEDS ORDERED: Nitrofurantoin/Nitrofuran Mac 100 MG Cap PO ONE (21:35)
[2025-04-04] MEDS ORDERED: Macrobid 100 M100 MG PO (21:36)
[2025-04-04 21:45] VITALS: BP 166/78
== END 2025-04-04 22:06 | disposition home or self-care (01) ==
LOC: ER 20:16
PROVIDERS: Emergency Medicine
DX: I48.0 Paroxysmal atrial fibrillation (principal); N30.00 Acute cystitis without hematuria; I50.20 Unspecified systolic (congestive) heart failure; E03.9 Hypothyroidism, unspecified; J44.9 Chronic obstructive pulmonary disease, unspecified; Z79.899 Other long term (current) drug therapy; Z88.5 Allergy status to narcotic agent; Z88.1 Allergy status to other antibiotic agents; Z88.8 Allergy status to other drugs, medicaments and biological substances
CPT/HCPCS: 80053; 81001; 83735; 85025; 87077; 87086; 87186; 93005; 93010; 99285-25; A9270